=== PATIENT | male | born 1980 | race Caucasian/White ===

== ENCOUNTER 2016-08-12 16:00 | Emergency (ER) | payer MEDICARE, MEDICAID ==
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
[2016-08-12] MEDS ORDERED: CEPHALEXIN 500 MG CAPSULE ONE (18:05)
[2016-08-12] MEDS ORDERED: IBUPROFEN 800 MG TABLET ONE (18:37)
== END 2016-08-12 19:07 | disposition home or self-care (01) ==
LOC: ED 16:00
DX: S61.442A Puncture wound with foreign body of left hand, initial encounter (principal); W34.010A Accidental discharge of airgun, initial encounter; Y92.9 Unspecified place or not applicable
CPT/HCPCS: 73130; 99284; 10120 ×2; 99283; A9270 ×2